=== PATIENT | male | born 1935 | race African-American/Black ===

== ENCOUNTER 2016-09-09 12:31 | Inpatient (IN) | payer MEDICARE, MEDICAID ==
[~2016-09-09] VITALS: Ht 175.3 cm; Wt 74.8 kg
[~2016-09-09 12:31] MED LIST: ASPIRIN; ATENOLOL; INSULIN; LASIX; NEURONTIN; NORVASC; [UNRECOGNIZED DRUG - OTHER]
[2016-09-09 13:21] LABS: HEMATOCRIT. 42.4 % (42.0-52.0); HEMOGLOBIN. 14.3 g/dL (14.0-18.0); MEAN CORPUSCULAR HEMOGLOBIN 30.1 pg (28.0-32.0); MEAN CORPUSCULAR VOLUME 89.2 fL (80.0-94.0); MEAN PLATELET VOLUME 9.4 fl (7.4-10.4); PLATELET 192 x1000/uL (130-400); RED BLOOD CELL COUNT 4.75 mill/uL (4.7-6.1); RED CELL DISTRIBUTION WIDTH 14.6 % (11.6-14.6)
[2016-09-09 13:30] LABS: INR 1.1; PARTIAL THROMBOPLASTIN TIME 25.2 sec (24.0-34.0); PROTHROMBIN TIME 11.1 sec
[2016-09-09 13:39] LABS: CARBON DIOXIDE 23 mEq/L (21-32); CHLORIDE 102 mEq/L (98-107); ETHANOL BLOOD < 10 mg/dL
[2016-09-09 13:48] LABS: CREATINE KINASE 1260 IU/L (39-308)
[2016-09-09 13:52] LABS: PLATELET ESTIMATE NORMAL
[2016-09-09 13:58] LABS: CLARITY URINE CLEAR (CLEAR); COLOR URINE YELLOW (YELLOW); GLUCOSE URINE NEGATIVE (NEGATIVE); KETONES URINE NEGATIVE (NEGATIVE); LEUKOCYTE ESTERASE URINE NEGATIVE (NEGATIVE); NITRITE URINE NEGATIVE (NEGATIVE); OCCULT BLOOD URINE 1+ (NEGATIVE); PH URINE 6.5 (4.5-8.0); PROTEIN URINE 3+ (NEGATIVE); SPECIFIC GRAVITY URINE 1.009 (1.005-1.030); UROBILINOGEN URINE 0.2 E.U./dL (0.2-1.0)
[2016-09-09 14:20] LABS: *AMPHETAMINES SCREEN URINE NEGATIVE (NEGATIVE); *BARBITURATES SCREEN URINE NEGATIVE (NEGATIVE); *BENZODIAZEPINES SCREEN URINE NEGATIVE (NEGATIVE); *COCAINE SCREEN URINE NEGATIVE (NEGATIVE); CANNABINOID URINE SCREEN NEGATIVE (NEGATIVE); METHADONE URINE SCREEN NEGATIVE (NEGATIVE); OPIATES URINE SCREEN PRESUMTIVE POSITIVE (NEGATIVE); PHENCYCLIDINE URINE SCREEN NEGATIVE (NEGATIVE)
[2016-09-09] MEDS ORDERED: SODIUM CHLORIDE 0.9% 1,000 ML IV ONE (14:27)
[2016-09-09] MEDS ORDERED: MAGNESIUM/ALUMINUM HYDROXIDE/SIMETHICONE 30ML UDC PO PRN (21:45)
[2016-09-09] MEDS ORDERED: IPRATROPIUM/ALBUTEROL 0.5-3(2.5)MG/3ML NEB INH PRN (21:45)
[2016-09-09] MEDS ORDERED: ONDANSETRON HCL 4MG/2ML VIAL IV PRN (21:45)
[2016-09-09] MEDS ORDERED: DEXTROSE 50% WATER 50ML SYRINGE IV PRN (21:45)
[2016-09-09] MEDS ORDERED: ACETAMINOPHEN 325MG TABLET PO PRN (21:45)
[2016-09-09] MEDS ORDERED: LORAZEPAM 0.5MG TABLET PO PRN (21:45)
[2016-09-09] MEDS ORDERED: DIPHENHYDRAMINE 50MG/ML VIAL IV PRN (21:45)
[2016-09-09] MEDS ORDERED: ATEN-42 PO (22:23)
[2016-09-09] MEDS ORDERED: GABA100C PO (22:23)
[2016-09-09] MEDS ORDERED: FURO-152 PO (22:23)
[2016-09-09] MEDS ORDERED: AMLO2.5T2 PO (22:23)
[2016-09-09] MEDS ORDERED: ASPI-986 PO (22:23)
[2016-09-09] MEDS ORDERED: ACETAMINOPHEN WITH CODEINE 300/60MG TABLET PO PRN (22:30)
[2016-09-09] MEDS ORDERED: DEXT 5%/0.45% NACL 500 ML IV ONE (22:34)
[2016-09-09] MEDS: LACTULOSE 20G/30ML UDC PO SCH (22:46)
[2016-09-09] MEDS: SODIUM CHLORIDE 0.9% INJ 3ML FLUSH IVF SCH (22:46)
[2016-09-09] MEDS: HYDRALAZINE HCL 100MG TABLET PO SCH (22:47)
[2016-09-09] MEDS: GABAPENTIN 300MG CAPSULE PO SCH (22:47)
[2016-09-09] MEDS: CLONIDINE 0.1MG TABLET PO PRN (22:47)
[2016-09-09 23:05] VITALS: BP 225/106
[2016-09-10] VITALS: BP 144/68
[2016-09-10 00:01] LABS: AMMONIA 30 uMol/L (<32)
[2016-09-10] MEDS: IPRATROPIUM/ALBUTEROL 0.5-3(2.5)MG/3ML NEB HHN SCH ×7 (00:19→23:57)
[2016-09-10 04:00] VITALS: BP 123/57
[2016-09-10] MEDS: SODIUM CHLORIDE 0.9% INJ 3ML FLUSH IVF SCH ×3 (06:08→21:09)
[2016-09-10] MEDS: HYDRALAZINE HCL 100MG TABLET PO SCH ×3 (06:10→21:10)
[2016-09-10] MEDS: GABAPENTIN 300MG CAPSULE PO SCH ×3 (06:10→21:09)
[2016-09-10] MEDS: LACTULOSE 20G/30ML UDC PO SCH (06:10)
[2016-09-10] MEDS: BLOOD SUGAR DIAGNOSTIC STRIP TEST SCH ×4 (06:44→21:09)
[2016-09-10] MEDS: INSULIN LISPRO 100 UNITS/ML SUBCUT SCH ×4 (07:50→22:04)
[2016-09-10 08:00] VITALS: BP 148/73
[2016-09-10] MEDS: NIFEDIPINE XL 60MG TAB PO SCH (10:07)
[2016-09-10] MEDS: ATENOLOL 100 MG TABLET PO SCH (10:07)
[2016-09-10 12:00] VITALS: BP 125/59
[2016-09-10 16:00] VITALS: BP 124/56
[2016-09-10 20:00] VITALS: BP 123/60
[2016-09-10] MEDS ORDERED: ATORVASTATIN CALCIUM 10MG TABLET PO SCH (21:00)
[2016-09-10] MEDS: SODIUM CHLORIDE 0.45% 1,000 ML IV SCH (21:08)
[2016-09-11] VITALS (7 sets, daily range): BP systolic 142–175; BP diastolic 65–94
[2016-09-11] MEDS: IPRATROPIUM/ALBUTEROL 0.5-3(2.5)MG/3ML NEB HHN SCH ×4 (04:12→17:30)
[2016-09-11] MEDS: CLONIDINE 0.1MG TABLET PO PRN ×2 (05:26→16:58)
[2016-09-11] MEDS: SODIUM CHLORIDE 0.9% INJ 3ML FLUSH IVF SCH ×2 (05:32→13:48)
[2016-09-11] MEDS: GABAPENTIN 300MG CAPSULE PO SCH ×2 (05:38→13:46)
[2016-09-11] MEDS: HYDRALAZINE HCL 100MG TABLET PO SCH ×2 (05:39→13:46)
[2016-09-11] MEDS: BLOOD SUGAR DIAGNOSTIC STRIP TEST SCH ×2 (07:21→12:20)
[2016-09-11] MEDS: INSULIN LISPRO 100 UNITS/ML SUBCUT SCH ×2 (07:50→13:47)
[2016-09-11] MEDS: NIFEDIPINE XL 60MG TAB PO SCH (09:16)
[2016-09-11] MEDS: ATENOLOL 100 MG TABLET PO SCH (09:17)
[2016-09-11] MEDS: SODIUM CHLORIDE 0.45% 1,000 ML IV SCH (09:28)
[2016-09-11 10:33] LABS: CREATINE KINASE 1253 IU/L (39-308)
== END 2016-09-11 19:00 | disposition home or self-care (01) | DRG 637 ==
LOC: ER 13:14 → ENRESERV 19:42 → 6WST 22:05
PROVIDERS: ADMIT Internal Medicine; ATTEND Internal Medicine
DX: E11.649 Type 2 diabetes mellitus with hypoglycemia without coma (principal); G93.41 Metabolic encephalopathy; M62.82 Rhabdomyolysis; I50.32 Chronic diastolic (congestive) heart failure; E78.00 Pure hypercholesterolemia, unspecified; I11.0 Hypertensive heart disease with heart failure; J44.9 Chronic obstructive pulmonary disease, unspecified; M47.812 Spondylosis without myelopathy or radiculopathy, cervical region; N40.0 Benign prostatic hyperplasia without lower urinary tract symptoms; Z79.4 Long term (current) use of insulin; Z82.49 Family history of ischemic heart disease and other diseases of the circulatory system; Z87.891 Personal history of nicotine dependence; Z95.0 Presence of cardiac pacemaker
CPT/HCPCS: 36415; 70450; 71010; 80048; 80053; 80305; 81001; 82140; 82550; 82553; 82962; 83036; 83690; 84484; 85025; 85610; 85730; 93005; 94640; 96360; 96361; 99285; G0482; J1815; J7030; J7620

== ENCOUNTER 2017-01-24 15:20 | Inpatient (IN) | payer MEDICARE, MEDICAID ==
[~2017-01-24] VITALS: Ht 182.9 cm; Wt 74.4 kg
[~2017-01-24 15:20] MED LIST changes: +AMLO2.5T2 PO; +ASPI-986 PO; -ASPIRIN; +ATEN-42 PO; -ATENOLOL; +FURO-152 PO; +GABA100C PO; -LASIX; -NEURONTIN; -NORVASC
[2017-01-24] MEDS ORDERED: POTA10CA42 PO (15:27)
[2017-01-24] MEDS ORDERED: IPRATROPIUM/ALBUTEROL 0.5-3(2.5)MG/3ML NEB HHN ONE ×3 (15:45→18:45)
[2017-01-24] MEDS ORDERED: METHYLPREDNISOLONE SOD SUCC 125 MG/2 ML VIAL IV ONE (15:45)
[2017-01-24 16:03] LABS: BG BASE EXCESS -11.5 mmol/L (-2.0-2.0); BG CARBOXYHEMOGLOBIN 0.5 % (0.5-1.5); BG HCO3 ACT 16.4 mmol/L (22.0-26.0); BG METHEMOGLOBIN 0.4 % (0.0-1.5); BG OXYHEMOGLOBIN 98.1 % (94.0-97.0); BG PCO2 44.7 mmHg (35.0-45.0); BG PH 7.183 (7.350-7.450); BG PO2 190.4 mmHg (75.0-100.0); BG SAMPLE SITE RIGHT RADIAL
[2017-01-24 16:10] LABS: INR 1.1; PROTHROMBIN TIME 11.5 sec (9.4-11.6)
[2017-01-24 16:17] LABS: HEMATOCRIT. 39.3 % (42.0-52.0); HEMOGLOBIN. 13.1 g/dL (14.0-18.0); MEAN CORPUSCULAR HEMOGLOBIN 30.4 pg (28.0-32.0); MEAN CORPUSCULAR VOLUME 90.9 fL (80.0-94.0); MEAN PLATELET VOLUME 9.3 fl (7.4-10.4); PLATELET 153 x1000/uL (130-400); RED BLOOD CELL COUNT 4.32 mill/uL (4.7-6.1); RED CELL DISTRIBUTION WIDTH 15.4 % (11.6-14.6)
[2017-01-24 16:23] LABS: CARBON DIOXIDE 18 mEq/L (21-32); CHLORIDE 108 mEq/L (98-107)
[2017-01-24] MEDS ORDERED: ASPIRIN 325MG EC TABLET PO ONE (16:45)
[2017-01-24] MEDS ORDERED: CLOPIDOGREL 75MG TABLET PO ONE (16:45)
[2017-01-24 16:57] LABS: PLATELET ESTIMATE NORMAL
[2017-01-24 17:05] LABS: BG BASE EXCESS -10.6 mmol/L (-2.0-2.0); BG CARBOXYHEMOGLOBIN 0.9 % (0.5-1.5); BG DEOXYHEMOGLOBIN 2.2 % (0.0-5.0); BG HCO3 ACT 15.8 mmol/L (22.0-26.0); BG METHEMOGLOBIN 0.4 % (0.0-1.5); BG OXYGEN SATURATION 97.8 % (92.0-98.5); BG OXYHEMOGLOBIN 96.5 % (94.0-97.0); BG PCO2 36.7 mmHg (35.0-45.0); BG PH 7.251 (7.350-7.450); BG PO2 116.3 mmHg (75.0-100.0); BG SAMPLE SITE RIGHT RADIAL; BG TOTAL HEMOGLOBIN 14.4 g/dL (12.0-18.0); BG VENT MODE NASAL CANNULA
[2017-01-24 22:24] VITALS: BP 182/102
[2017-01-24 22:30] VITALS: BP 182/102
[2017-01-24 23:23] VITALS: BP 205/114
[2017-01-25] VITALS (67 sets, daily range): BP systolic 138–211; BP diastolic 58–145
[2017-01-25] MEDS ORDERED: ONDANSETRON HCL 4MG/2ML VIAL IV PRN
[2017-01-25] MEDS ORDERED: DIPHENHYDRAMINE 50MG/ML VIAL IV PRN
[2017-01-25] MEDS ORDERED: MORPHINE SULFATE 10 MG/ML CPJ IV PRN
[2017-01-25] MEDS ORDERED: IPRATROPIUM/ALBUTEROL 0.5-3(2.5)MG/3ML NEB INH PRN
[2017-01-25] MEDS ORDERED: MAGNESIUM/ALUMINUM HYDROXIDE/SIMETHICONE 30ML UDC PO PRN
[2017-01-25] MEDS ORDERED: TEMAZEPAM 15MG CAPSULE PO SCH
[2017-01-25] MEDS ORDERED: LEVOFLOXACIN 500MG PREMIX 100 ML IV SCH ×2 (00:45→03:00)
[2017-01-25] MEDS ORDERED: METHYLPREDNISOLONE SOD SUCC 40 MG/ML VIAL IV SCH (00:45)
[2017-01-25] MEDS: HYDRALAZINE 20MG/ML VIAL IV PRN ×3 (00:54→21:06)
[2017-01-25] MEDS ORDERED: LORAZEPAM 2MG/ML CPJ IV PRN (01:00)
[2017-01-25] MEDS: IPRATROPIUM/ALBUTEROL 0.5-3(2.5)MG/3ML NEB HHN SCH ×6 (01:27→20:35)
[2017-01-25] MEDS: NITROGLYCERIN OINT 1GM/INCH UDPKT TD SCH ×4 (02:30→22:29)
[2017-01-25] MEDS: INSULIN DETEMIR UD 100 UNITS/ML SYR SUBCUT SCH ×2 (02:32→22:33)
[2017-01-25 02:41] LABS: BG BASE EXCESS -11.1 mmol/L (-2.0-2.0); BG BILEVEL POS AIRWAY PRESSURE 15/5; BG CARBOXYHEMOGLOBIN 0.1 % (0.5-1.5); BG DEOXYHEMOGLOBIN 1.6 % (0.0-5.0); BG FRACTION INSPIRED OXYGEN 30; BG HCO3 ACT 13.3 mmol/L (22.0-26.0); BG METHEMOGLOBIN 0.5 % (0.0-1.5); BG OXYGEN SATURATION 98.4 % (92.0-98.5); BG OXYHEMOGLOBIN 97.8 % (94.0-97.0); BG PCO2 26.5 mmHg (35.0-45.0); BG PH 7.317 (7.350-7.450); BG PO2 135.9 mmHg (75.0-100.0); BG SAMPLE SITE LEFT BRACHIAL; BG TOTAL HEMOGLOBIN 14.5 g/dL (12.0-18.0); BG VENT MODE MASK - BIPAP; BG VENT RATE 18 set
[2017-01-25] MEDS: SODIUM CHLORIDE 0.9% INJ 3ML FLUSH IVF SCH ×3 (05:04→21:06)
[2017-01-25] MEDS: METHYLPREDNISOLONE SOD SUCC 125 MG/2 ML VIAL IV SCH ×3 (05:04→21:05)
[2017-01-25] MEDS: HYDRALAZINE HCL 100MG TABLET PO SCH ×3 (05:04→22:30)
[2017-01-25 06:28] LABS: HEMATOCRIT. 40.9 % (42.0-52.0); HEMOGLOBIN. 13.6 g/dL (14.0-18.0); MEAN PLATELET VOLUME 9.7 fl (7.4-10.4); PLATELET 141 x1000/uL (130-400); RED BLOOD CELL COUNT 4.55 mill/uL (4.7-6.1); RED CELL DISTRIBUTION WIDTH 15.2 % (11.6-14.6)
[2017-01-25] MEDS: BLOOD SUGAR DIAGNOSTIC STRIP TEST SCH ×4 (07:50→20:48)
[2017-01-25] MEDS: INSULIN LISPRO 100 UNITS/ML SUBCUT SCH ×4 (08:20→20:49)
[2017-01-25] MEDS: FUROSEMIDE 40MG/4ML VIAL IVP SCH (08:34)
[2017-01-25 08:35] LABS: TROPONIN I 2.9 ng/mL (0.00-0.04)
[2017-01-25] MEDS: PANTOPRAZOLE SODIUM 40 MG/VIAL IV SCH (08:35)
[2017-01-25] MEDS: DOCUSATE SODIUM 100MG CAPSULE PO SCH (08:35)
[2017-01-25] MEDS: ENOXAPARIN 40MG/0.4ML SYR SUBCUT SCH (08:35)
[2017-01-25] MEDS: ASPIRIN 81MG EC TABLET PO SCH (08:35)
[2017-01-25] MEDS: SPIRONOLACTONE 25MG TABLET PO SCH (08:36)
[2017-01-25] MEDS: CARVEDILOL 6.25 MG TABLET PO SCH ×2 (08:36→19:25)
[2017-01-25] MEDS: CLOPIDOGREL 75MG TABLET PO SCH (08:36)
[2017-01-25 08:41] LABS: BG BASE EXCESS -7.3 mmol/L (-2.0-2.0); BG BILEVEL POS AIRWAY PRESSURE 15/5; BG CARBOXYHEMOGLOBIN 0.6 % (0.5-1.5); BG DEOXYHEMOGLOBIN 1.2 % (0.0-5.0); BG FRACTION INSPIRED OXYGEN 30; BG HCO3 ACT 16.7 mmol/L (22.0-26.0); BG METHEMOGLOBIN 0.6 % (0.0-1.5); BG OXYGEN SATURATION 98.8 % (92.0-98.5); BG OXYHEMOGLOBIN 97.6 % (94.0-97.0); BG PCO2 30.1 mmHg (35.0-45.0); BG PH 7.361 (7.350-7.450); BG PO2 136.3 mmHg (75.0-100.0); BG SAMPLE SITE RIGHT RADIAL; BG TOTAL HEMOGLOBIN 14.8 g/dL (12.0-18.0); BG VENT MODE MASK - BIPAP; BG VENT RATE 18 set
[2017-01-25] MEDS ORDERED: POTASSIUM CHLORIDE 20MEQ TABLET SR PO SCH (09:00)
[2017-01-25] MEDS ORDERED: IPRATROPIUM/ALBUTEROL 0.5-3(2.5)MG/3ML NEB HHN PRN (10:15)
[2017-01-25] MEDS ORDERED: INFLUENZA VIRUS VACCINE 0.5ML SYR IM ONE (12:00)
[2017-01-25] MEDS: BUDESONIDE 0.5MG/2ML NEB HHN SCH (12:14)
[2017-01-25 17:24] LABS: CLARITY URINE CLEAR (CLEAR); COLOR URINE YELLOW (YELLOW); GLUCOSE URINE NEGATIVE (NEGATIVE); KETONES URINE NEGATIVE (NEGATIVE); LEUKOCYTE ESTERASE URINE NEGATIVE (NEGATIVE); NITRITE URINE NEGATIVE (NEGATIVE); OCCULT BLOOD URINE NEGATIVE (NEGATIVE); PROTEIN URINE 2+ (NEGATIVE); SPECIFIC GRAVITY URINE 1.012 (1.005-1.030); UROBILINOGEN URINE 0.2 E.U./dL (0.2-1.0)
[2017-01-25 17:56] LABS: *AMPHETAMINES SCREEN URINE NEGATIVE (NEGATIVE); *BARBITURATES SCREEN URINE NEGATIVE (NEGATIVE); *BENZODIAZEPINES SCREEN URINE NEGATIVE (NEGATIVE); *COCAINE SCREEN URINE NEGATIVE (NEGATIVE); CANNABINOID URINE SCREEN NEGATIVE (NEGATIVE); METHADONE URINE SCREEN NEGATIVE (NEGATIVE); OPIATES URINE SCREEN PRESUMTIVE POSITIVE (NEGATIVE); PHENCYCLIDINE URINE SCREEN NEGATIVE (NEGATIVE)
[2017-01-25] MEDS ORDERED: PNEUMOCOCCAL 23-VAL P-SAC VAC 0.5 ML IM ONE (18:30)
[2017-01-25] MEDS: ATORVASTATIN CALCIUM 10MG TABLET PO SCH (19:25)
[2017-01-25] MEDS: LORAZEPAM 1MG TABLET PO PRN (22:29)
[2017-01-25 22:41] LABS: PLATELET ESTIMATE NORMAL
[2017-01-26] VITALS (52 sets, daily range): BP systolic 120–205; BP diastolic 57–109
[2017-01-26] MEDS: IPRATROPIUM/ALBUTEROL 0.5-3(2.5)MG/3ML NEB HHN SCH ×6 (00:27→20:07)
[2017-01-26] MEDS: BUDESONIDE 0.5MG/2ML NEB HHN SCH ×3 (00:28→20:07)
[2017-01-26] MEDS: HYDRALAZINE 20MG/ML VIAL IV PRN ×3 (03:41→16:46)
[2017-01-26] MEDS: LEVOFLOXACIN 250MG PREMIX 50 ML IV SCH (03:42)
[2017-01-26] MEDS: SODIUM CHLORIDE 0.9% INJ 3ML FLUSH IVF SCH ×3 (05:35→21:27)
[2017-01-26] MEDS: LORAZEPAM 1MG TABLET PO PRN (05:40)
[2017-01-26] MEDS: NITROGLYCERIN OINT 1GM/INCH UDPKT TD SCH ×3 (05:40→21:28)
[2017-01-26] MEDS: HYDRALAZINE HCL 100MG TABLET PO SCH ×3 (05:40→22:59)
[2017-01-26] MEDS: METHYLPREDNISOLONE SOD SUCC 125 MG/2 ML VIAL IV SCH (05:40)
[2017-01-26] MEDS: INSULIN LISPRO 100 UNITS/ML SUBCUT SCH ×4 (08:20→21:24)
[2017-01-26] MEDS: BLOOD SUGAR DIAGNOSTIC STRIP TEST SCH ×4 (08:21→21:12)
[2017-01-26] MEDS: PANTOPRAZOLE SODIUM 40 MG/VIAL IV SCH (08:21)
[2017-01-26] MEDS: ASPIRIN 81MG EC TABLET PO SCH (08:22)
[2017-01-26] MEDS: CLOPIDOGREL 75MG TABLET PO SCH (08:22)
[2017-01-26] MEDS: SPIRONOLACTONE 25MG TABLET PO SCH (08:22)
[2017-01-26] MEDS: DOCUSATE SODIUM 100MG CAPSULE PO SCH (08:22)
[2017-01-26] MEDS: FUROSEMIDE 40MG/4ML VIAL IVP SCH (08:22)
[2017-01-26] MEDS: CARVEDILOL 6.25 MG TABLET PO SCH (08:23)
[2017-01-26] MEDS: ENOXAPARIN 40MG/0.4ML SYR SUBCUT SCH (08:24)
[2017-01-26] MEDS ORDERED: CLONIDINE 0.2MG TABLET PO PRN (13:15)
[2017-01-26] MEDS ORDERED: METHYLPREDNISOLONE SOD SUCC 40 MG/ML VIAL IV SCH (17:00)
[2017-01-26] MEDS ORDERED: ACETAMINOPHEN WITH CODEINE 300/60MG TABLET PO PRN (17:15)
[2017-01-26] MEDS ORDERED: CHLORDIAZEPOXIDE 25MG CAPSULE PO NR (17:15)
[2017-01-26] MEDS: BENAZEPRIL 20MG TABLET PO SCH (17:35)
[2017-01-26] MEDS ORDERED: CARVEDILOL 12.5MG TABLET PO SCH (21:00)
[2017-01-26] MEDS: INSULIN DETEMIR UD 100 UNITS/ML SYR SUBCUT SCH (21:25)
[2017-01-26] MEDS: ATORVASTATIN CALCIUM 10MG TABLET PO SCH (21:26)
[2017-01-26] MEDS: CARVEDILOL 12.5MG TABLET PO SCH (21:26)
[2017-01-26] MEDS: OMEPRAZOLE 20MG CAPSULE EXTENDED RELEASE PO SCH (21:27)
[2017-01-26] MEDS: CLONIDINE 0.2MG TABLET PO SCH (22:58)
[2017-01-26] MEDS: CHLORDIAZEPOXIDE 25MG CAPSULE PO SCH (22:59)
[2017-01-27] VITALS (40 sets, daily range): BP systolic 76–174; BP diastolic 44–118
[2017-01-27] MEDS: IPRATROPIUM/ALBUTEROL 0.5-3(2.5)MG/3ML NEB HHN SCH ×5 (00:13→20:06)
[2017-01-27] MEDS: LEVOFLOXACIN 250MG PREMIX 50 ML IV SCH (02:12)
[2017-01-27] MEDS: BENAZEPRIL 20MG TABLET PO SCH ×2 (04:25→18:06)
[2017-01-27] MEDS: SODIUM CHLORIDE 0.9% INJ 3ML FLUSH IVF SCH ×3 (05:03→21:29)
[2017-01-27] MEDS: HYDRALAZINE HCL 100MG TABLET PO SCH ×3 (05:06→22:00)
[2017-01-27] MEDS: CHLORDIAZEPOXIDE 25MG CAPSULE PO SCH ×3 (05:06→22:23)
[2017-01-27] MEDS: CLONIDINE 0.2MG TABLET PO SCH ×3 (05:06→22:00)
[2017-01-27] MEDS: NITROGLYCERIN OINT 1GM/INCH UDPKT TD SCH ×3 (05:06→22:23)
[2017-01-27 05:34] LABS: HEMATOCRIT. 35.2 % (42.0-52.0); HEMOGLOBIN. 11.9 g/dL (14.0-18.0); MEAN CORPUSCULAR HEMOGLOBIN 29.9 pg (28.0-32.0); MEAN CORPUSCULAR VOLUME 88.7 fL (80.0-94.0); MEAN PLATELET VOLUME 9.3 fl (7.4-10.4); PLATELET 142 x1000/uL (130-400); RED BLOOD CELL COUNT 3.97 mill/uL (4.7-6.1)
[2017-01-27 06:13] LABS: CARBON DIOXIDE 24 mEq/L (21-32); CHLORIDE 105 mEq/L (98-107)
[2017-01-27] MEDS: BUDESONIDE 0.5MG/2ML NEB HHN SCH ×2 (07:46→20:05)
[2017-01-27] MEDS: BLOOD SUGAR DIAGNOSTIC STRIP TEST SCH ×4 (07:50→21:10)
[2017-01-27 08:01] LABS: PLATELET ESTIMATE NORMAL
[2017-01-27] MEDS: OMEPRAZOLE 20MG CAPSULE EXTENDED RELEASE PO SCH ×2 (08:14→21:26)
[2017-01-27] MEDS: DEXTROSE 50% WATER 50ML SYRINGE IV PRN (08:14)
[2017-01-27] MEDS: INSULIN LISPRO 100 UNITS/ML SUBCUT SCH ×4 (08:20→21:10)
[2017-01-27] MEDS ORDERED: ENOXAPARIN 60MG/0.6ML SYR SUBCUT SCH (09:00)
[2017-01-27] MEDS ORDERED: NITROGLYCERIN 50MCG/ML 10ML VIAL (CATH LAB) IV ONE (10:13)
[2017-01-27] MEDS ORDERED: NICARDIPINE 100MCG/ML 10ML VIAL (CATH LAB) IV ONE (10:13)
[2017-01-27] MEDS ORDERED: HEPARIN SODIUM 1,000 UNIT/1ML VIAL IV ONE (10:13)
[2017-01-27] MEDS: FUROSEMIDE 40MG/4ML VIAL IVP SCH (10:32)
[2017-01-27] MEDS: METHYLPREDNISOLONE SOD SUCC 40 MG/ML VIAL IV SCH (10:33)
[2017-01-27] MEDS: CLOPIDOGREL 75MG TABLET PO SCH (10:34)
[2017-01-27] MEDS: SPIRONOLACTONE 25MG TABLET PO SCH (10:34)
[2017-01-27] MEDS: DOCUSATE SODIUM 100MG CAPSULE PO SCH (10:34)
[2017-01-27] MEDS: CARVEDILOL 12.5MG TABLET PO SCH ×2 (10:34→21:29)
[2017-01-27] MEDS: ASPIRIN 81MG EC TABLET PO SCH (10:34)
[2017-01-27] MEDS: SODIUM CHLORIDE 0.45% 1,000 ML IV SCH (10:43)
[2017-01-27] MEDS ORDERED: LIDOCAINE HCL 1% 20ML VIAL (Pyxis) INJ ONE (12:01)
[2017-01-27] MEDS ORDERED: IODIXANOL 320MG/ML 100 ML BOTTLE IV ONE (12:02)
[2017-01-27] MEDS ORDERED: MIDAZOLAM HCL 2 MG/2 ML VIAL ONE (12:59)
[2017-01-27] MEDS ORDERED: FENTANYL CITRATE/PF 50MCG/ML 2ML VIAL ONE (12:59)
[2017-01-27] MEDS ORDERED: ATROPINE SULFATE 1MG/10ML SYR IV PRN (14:00)
[2017-01-27] MEDS ORDERED: ACETAMINOPHEN 325MG TABLET PO PRN (14:00)
[2017-01-27] MEDS: ATORVASTATIN CALCIUM 10MG TABLET PO SCH (21:26)
[2017-01-27] MEDS: INSULIN DETEMIR UD 100 UNITS/ML SYR SUBCUT SCH (21:50)
[2017-01-28] VITALS (24 sets, daily range): BP systolic 87–157; BP diastolic 49–102
[2017-01-28] MEDS: IPRATROPIUM/ALBUTEROL 0.5-3(2.5)MG/3ML NEB HHN SCH ×6 (00:23→21:53)
[2017-01-28] MEDS: SODIUM CHLORIDE 0.45% 1,000 ML IV SCH ×2 (01:43→21:27)
[2017-01-28] MEDS: LEVOFLOXACIN 250MG PREMIX 50 ML IV SCH (03:51)
[2017-01-28] MEDS: BENAZEPRIL 20MG TABLET PO SCH ×2 (05:36→17:39)
[2017-01-28] MEDS: CHLORDIAZEPOXIDE 25MG CAPSULE PO SCH (06:08)
[2017-01-28] MEDS: OMEPRAZOLE 20MG CAPSULE EXTENDED RELEASE PO SCH ×2 (06:08→21:50)
[2017-01-28] MEDS: CLONIDINE 0.2MG TABLET PO SCH ×3 (06:08→21:51)
[2017-01-28] MEDS: HYDRALAZINE HCL 100MG TABLET PO SCH ×3 (06:09→21:51)
[2017-01-28] MEDS: SODIUM CHLORIDE 0.9% INJ 3ML FLUSH IVF SCH ×2 (06:09→21:56)
[2017-01-28] MEDS: NITROGLYCERIN OINT 1GM/INCH UDPKT TD SCH ×3 (06:09→21:52)
[2017-01-28] MEDS: DEXTROSE 50% WATER 50ML SYRINGE IV PRN (06:42)
[2017-01-28] MEDS: BLOOD SUGAR DIAGNOSTIC STRIP TEST SCH ×4 (06:51→21:53)
[2017-01-28 06:54] LABS: HEMATOCRIT. 40.4 % (42.0-52.0); HEMOGLOBIN. 13.3 g/dL (14.0-18.0); MEAN CORPUSCULAR HEMOGLOBIN 29.5 pg (28.0-32.0); MEAN CORPUSCULAR VOLUME 89.6 fL (80.0-94.0); MEAN PLATELET VOLUME 9.4 fl (7.4-10.4); PLATELET 153 x1000/uL (130-400); RED BLOOD CELL COUNT 4.51 mill/uL (4.7-6.1)
[2017-01-28] MEDS: INSULIN LISPRO 100 UNITS/ML SUBCUT SCH ×5 (07:20→22:22)
[2017-01-28] MEDS: METHYLPREDNISOLONE SOD SUCC 40 MG/ML VIAL IV SCH (08:35)
[2017-01-28] MEDS: CLOPIDOGREL 75MG TABLET PO SCH (08:35)
[2017-01-28] MEDS: DOCUSATE SODIUM 100MG CAPSULE PO SCH (08:35)
[2017-01-28] MEDS: FUROSEMIDE 40MG/4ML VIAL IVP SCH (08:35)
[2017-01-28] MEDS: SPIRONOLACTONE 25MG TABLET PO SCH (08:35)
[2017-01-28] MEDS: CARVEDILOL 12.5MG TABLET PO SCH ×2 (08:36→21:52)
[2017-01-28] MEDS: ASPIRIN 81MG EC TABLET PO SCH (08:36)
[2017-01-28] MEDS: BUDESONIDE 0.5MG/2ML NEB HHN SCH (09:50)
[2017-01-28] MEDS: METHYLPREDNISOLONE SOD SUCC 125 MG/2 ML VIAL IV SCH (21:50)
[2017-01-28] MEDS: ATORVASTATIN CALCIUM 10MG TABLET PO SCH (21:50)
[2017-01-28] MEDS: INSULIN DETEMIR UD 100 UNITS/ML SYR SUBCUT SCH (22:23)
[2017-01-29] VITALS (19 sets, daily range): BP systolic 100–152; BP diastolic 51–104
[2017-01-29] MEDS: IPRATROPIUM/ALBUTEROL 0.5-3(2.5)MG/3ML NEB HHN SCH ×6 (02:25→20:49)
[2017-01-29] MEDS: NITROGLYCERIN OINT 1GM/INCH UDPKT TD SCH ×3 (06:11→22:40)
[2017-01-29] MEDS: METHYLPREDNISOLONE SOD SUCC 125 MG/2 ML VIAL IV SCH ×3 (06:11→22:40)
[2017-01-29] MEDS: OMEPRAZOLE 20MG CAPSULE EXTENDED RELEASE PO SCH ×2 (06:12→21:09)
[2017-01-29] MEDS: BENAZEPRIL 20MG TABLET PO SCH ×2 (06:12→17:47)
[2017-01-29] MEDS: HYDRALAZINE HCL 100MG TABLET PO SCH ×3 (06:12→22:40)
[2017-01-29] MEDS: INSULIN LISPRO 100 UNITS/ML SUBCUT SCH ×4 (06:13→21:13)
[2017-01-29] MEDS: CLONIDINE 0.2MG TABLET PO SCH ×3 (06:13→22:00)
[2017-01-29 06:44] LABS: BASOPHILS % 0.1 % (0.0-2.0); EOSINOPHILS % 0.1 % (0.0-5.0); HEMATOCRIT. 39.5 % (42.0-52.0); HEMOGLOBIN. 13.4 g/dL (14.0-18.0); MEAN CORPUSCULAR HEMOGLOBIN 30.4 pg (28.0-32.0); MEAN CORPUSCULAR VOLUME 89.7 fL (80.0-94.0); MEAN PLATELET VOLUME 9.4 fl (7.4-10.4); MONOCYTES % 7.6 % (2.0-8.0); NEUTROPHILS % 79.2 % (40.0-76.0); PLATELET 149 x1000/uL (130-400); RED BLOOD CELL COUNT 4.41 mill/uL (4.7-6.1); RED CELL DISTRIBUTION WIDTH 15.2 % (11.6-14.6)
[2017-01-29 08:42] LABS: PLATELET ESTIMATE NORMAL
[2017-01-29] MEDS: ASPIRIN 81MG EC TABLET PO SCH (08:54)
[2017-01-29] MEDS: FUROSEMIDE 40MG/4ML VIAL IVP SCH (08:54)
[2017-01-29] MEDS: DOCUSATE SODIUM 100MG CAPSULE PO SCH (08:54)
[2017-01-29] MEDS: CARVEDILOL 12.5MG TABLET PO SCH ×2 (08:56→21:10)
[2017-01-29] MEDS: SPIRONOLACTONE 25MG TABLET PO SCH (08:56)
[2017-01-29] MEDS: CLOPIDOGREL 75MG TABLET PO SCH (08:56)
[2017-01-29] MEDS ORDERED: PREDNISONE 20MG TABLET PO SCH (09:00)
[2017-01-29] MEDS: LEVOFLOXACIN 250MG TABLET PO SCH (09:14)
[2017-01-29] MEDS: SODIUM CHLORIDE 0.45% 1,000 ML IV SCH ×2 (09:37→19:42)
[2017-01-29 11:42] LABS: BG BASE EXCESS -2.6 mmol/L (-2.0-2.0); BG CARBOXYHEMOGLOBIN 0.3 % (0.5-1.5); BG DEOXYHEMOGLOBIN 2.9 % (0.0-5.0); BG FRACTION INSPIRED OXYGEN 28; BG HCO3 ACT 22.2 mmol/L (22.0-26.0); BG METHEMOGLOBIN 0.4 % (0.0-1.5); BG OXYGEN SATURATION 97.1 % (92.0-98.5); BG OXYHEMOGLOBIN 96.4 % (94.0-97.0); BG PH 7.374 (7.350-7.450); BG PO2 97.5 mmHg (75.0-100.0); BG SAMPLE SITE LEFT RADIAL; BG TOTAL HEMOGLOBIN 14.6 g/dL (12.0-18.0); BG VENT MODE NASAL CANNULA
[2017-01-29] MEDS: BLOOD SUGAR DIAGNOSTIC STRIP TEST SCH ×3 (11:50→21:11)
[2017-01-29 13:23] LABS: AMMONIA < 25 uMol/L (<32)
[2017-01-29] MEDS: BUDESONIDE 0.5MG/2ML NEB HHN SCH (20:49)
[2017-01-29] MEDS: ATORVASTATIN CALCIUM 10MG TABLET PO SCH (21:09)
[2017-01-29] MEDS: SODIUM CHLORIDE 0.9% INJ 3ML FLUSH IVF SCH (21:11)
[2017-01-29] MEDS: GUAIFENESIN 200MG/10ML SUGAR FREE UDC PO PRN (22:42)
[2017-01-29] MEDS: INSULIN DETEMIR UD 100 UNITS/ML SYR SUBCUT SCH (22:43)
[2017-01-30] VITALS (16 sets, daily range): BP systolic 117–178; BP diastolic 58–84
[2017-01-30] MEDS: IPRATROPIUM/ALBUTEROL 0.5-3(2.5)MG/3ML NEB HHN SCH ×6 (00:59→20:55)
[2017-01-30] MEDS: BENAZEPRIL 20MG TABLET PO SCH ×2 (04:34→17:47)
[2017-01-30] MEDS: METHYLPREDNISOLONE SOD SUCC 125 MG/2 ML VIAL IV SCH (05:54)
[2017-01-30] MEDS: OMEPRAZOLE 20MG CAPSULE EXTENDED RELEASE PO SCH ×2 (05:54→22:01)
[2017-01-30] MEDS: CLONIDINE 0.2MG TABLET PO SCH ×3 (05:55→21:55)
[2017-01-30] MEDS: HYDRALAZINE HCL 100MG TABLET PO SCH ×3 (05:55→21:55)
[2017-01-30] MEDS: SODIUM CHLORIDE 0.45% 1,000 ML IV SCH (05:56)
[2017-01-30] MEDS: NITROGLYCERIN OINT 1GM/INCH UDPKT TD SCH ×3 (05:56→21:57)
[2017-01-30] MEDS: SPIRONOLACTONE 25MG TABLET PO SCH (07:48)
[2017-01-30] MEDS: INSULIN LISPRO 100 UNITS/ML SUBCUT SCH ×4 (07:48→21:58)
[2017-01-30] MEDS: CLOPIDOGREL 75MG TABLET PO SCH (07:48)
[2017-01-30] MEDS: FUROSEMIDE 40MG/4ML VIAL IVP SCH (07:48)
[2017-01-30] MEDS: ASPIRIN 81MG EC TABLET PO SCH (07:48)
[2017-01-30] MEDS: CARVEDILOL 12.5MG TABLET PO SCH ×2 (07:49→21:56)
[2017-01-30] MEDS: GUAIFENESIN 200MG/10ML SUGAR FREE UDC PO PRN ×2 (07:52→17:47)
[2017-01-30] MEDS: DOCUSATE SODIUM 100MG CAPSULE PO SCH (07:52)
[2017-01-30] MEDS: BUDESONIDE 0.5MG/2ML NEB HHN SCH ×2 (07:56→20:55)
[2017-01-30] MEDS: BLOOD SUGAR DIAGNOSTIC STRIP TEST SCH ×3 (11:50→21:59)
[2017-01-30] MEDS: LEVOFLOXACIN 250MG TABLET PO SCH (12:45)
[2017-01-30] MEDS: METHYLPREDNISOLONE SOD SUCC 40 MG/ML VIAL IV SCH ×2 (13:23→21:56)
[2017-01-30 20:40] LABS: T4 FREE 0.86 ng/dL (0.76-1.46)
[2017-01-30 20:54] LABS: FOLIC ACID (FOLATE) SERUM 11.9 ng/mL (>5.38)
[2017-01-30] MEDS: ATORVASTATIN CALCIUM 10MG TABLET PO SCH (21:55)
[2017-01-30] MEDS: INSULIN DETEMIR UD 100 UNITS/ML SYR SUBCUT SCH (21:58)
[2017-01-30] MEDS: SODIUM CHLORIDE 0.9% INJ 3ML FLUSH IVF SCH (22:01)
== END 2017-01-30 22:55 | DRG 280 ==
LOC: ER 15:27 → 5EST 17:03 → ENRESERV 19:19 → CVICU 01-25 01:50 → 3WST 01-27 14:26
PROVIDERS: ADMIT Internal Medicine; ATTEND Internal Medicine
PROC: 5A09457 Assistance with Respiratory Ventilation, 24-96 Consecutive Hours, Continuous Positive Airway Pressure (ICD-10-PCS; principal; 2017-01-24)
PROC: 5A09357 Assistance with Respiratory Ventilation, Less than 24 Consecutive Hours, Continuous Positive Airway Pressure (ICD-10-PCS; 2017-01-26)
PROC: 4A023N7 Measurement of Cardiac Sampling and Pressure, Left Heart, Percutaneous Approach (ICD-10-PCS; 2017-01-27)
PROC: B2111ZZ Fluoroscopy of Multiple Coronary Arteries using Low Osmolar Contrast (ICD-10-PCS; 2017-01-27)
PROC: 5A09357 Assistance with Respiratory Ventilation, Less than 24 Consecutive Hours, Continuous Positive Airway Pressure (ICD-10-PCS; 2017-01-29)
PROC: 5A09357 Assistance with Respiratory Ventilation, Less than 24 Consecutive Hours, Continuous Positive Airway Pressure (ICD-10-PCS; 2017-01-30)
DX: I21.4 Non-ST elevation (NSTEMI) myocardial infarction (principal); J96.00 Acute respiratory failure, unspecified whether with hypoxia or hypercapnia; G92 Toxic encephalopathy; I50.33 Acute on chronic diastolic (congestive) heart failure; N17.9 Acute kidney failure, unspecified; R13.10 Dysphagia, unspecified; E87.2 Acidosis; J44.1 Chronic obstructive pulmonary disease with (acute) exacerbation; I13.0 Hypertensive heart and chronic kidney disease with heart failure and stage 1 through stage 4 chronic kidney disease, or unspecified chronic kidney disease; J45.901 Unspecified asthma with (acute) exacerbation; D64.9 Anemia, unspecified; E11.22 Type 2 diabetes mellitus with diabetic chronic kidney disease; E11.649 Type 2 diabetes mellitus with hypoglycemia without coma; E78.00 Pure hypercholesterolemia, unspecified; F28 Other psychotic disorder not due to a substance or known physiological condition; F41.1 Generalized anxiety disorder; I25.10 Atherosclerotic heart disease of native coronary artery without angina pectoris; K70.30 Alcoholic cirrhosis of liver without ascites; R26.9 Unspecified abnormalities of gait and mobility; M47.812 Spondylosis without myelopathy or radiculopathy, cervical region; N18.9 Chronic kidney disease, unspecified; N40.0 Benign prostatic hyperplasia without lower urinary tract symptoms; Z82.49 Family history of ischemic heart disease and other diseases of the circulatory system; Z83.3 Family history of diabetes mellitus; Z86.73 Personal history of transient ischemic attack (TIA), and cerebral infarction without residual deficits; Z87.891 Personal history of nicotine dependence; Z95.0 Presence of cardiac pacemaker; Z79.82 Long term (current) use of aspirin; Z79.4 Long term (current) use of insulin; Z79.899 Other long term (current) drug therapy
CPT/HCPCS: 36415; 36600; 70450; 71010; 80048; 80053; 80305; 81001; 82140; 82375; 82607; 82746; 82805; 82962; 83036; 83880; 84439; 84443; 84481; 84484; 85025; 85610; 90686; 90732; 92610; 93005; 93306; 93458; 93970; 94640; 94660; 94664; 96374; 97116; 97163; 99291; C1760; C1769; C1887; C1893; C9113; J0360; J1200; J1644; J1650; J1815; J1940; J1956; J2250; J2270; J2920; J2930; J3010; J3490; J7030; J7040; J7620; J7626; Q9967; A4315

== ENCOUNTER 2017-01-30 22:55 | Inpatient (IN) | payer MEDICARE, MEDICAID ==
[~2017-01-30] VITALS: Ht 365.8 cm; Wt 73.9 kg
[2017-01-30 22:55] VITALS: BP 130/69
[~2017-01-30 22:55] MED LIST changes: +POTA10CA42 PO
[2017-01-31] MEDS ORDERED: ACETAMINOPHEN WITH CODEINE 300/60MG TABLET PO PRN (02:15)
[2017-01-31] MEDS ORDERED: ONDANSETRON HCL 4MG/2ML VIAL IV PRN (02:15)
[2017-01-31] MEDS ORDERED: GUAIFENESIN 200MG/10ML SUGAR FREE UDC PO PRN (02:15)
[2017-01-31] MEDS ORDERED: ACETAMINOPHEN 650MG/20.3ML UDC PO PRN (02:15)
[2017-01-31] MEDS ORDERED: CLONIDINE 0.2MG TABLET PO PRN (02:15)
[2017-01-31] MEDS ORDERED: MAGNESIUM/ALUMINUM HYDROXIDE/SIMETHICONE 30ML UDC PO PRN (02:15)
[2017-01-31] MEDS ORDERED: DEXTROSE 50% WATER 50ML SYRINGE IV PRN (02:15)
[2017-01-31] MEDS: SODIUM CHLORIDE 0.45% 1,000 ML IV SCH ×2 (03:00→17:40)
[2017-01-31] MEDS: IPRATROPIUM/ALBUTEROL 0.5-3(2.5)MG/3ML NEB HHN SCH ×4 (04:13→21:56)
[2017-01-31] MEDS ORDERED: METHYLPREDNISOLONE SOD SUCC 40 MG/ML VIAL IV SCH (06:00)
[2017-01-31] MEDS: CLONIDINE 0.2MG TABLET PO SCH ×3 (06:00→23:15)
[2017-01-31] MEDS: BENAZEPRIL 20MG TABLET PO SCH ×2 (06:00→17:40)
[2017-01-31 06:03] LABS: BASOPHILS % 0.2 % (0.0-2.0); EOSINOPHILS % 0.1 % (0.0-5.0); HEMATOCRIT. 38.6 % (42.0-52.0); HEMOGLOBIN. 13.1 g/dL (14.0-18.0); LYMPHOCYTES % 13.3 % (20.0-50.0); MEAN CORPUSCULAR HEMOGLOBIN 30.3 pg (28.0-32.0); MEAN PLATELET VOLUME 9.3 fl (7.4-10.4); MONOCYTES % 14.7 % (2.0-8.0); NEUTROPHILS % 71.7 % (40.0-76.0); PLATELET 155 x1000/uL (130-400); RED BLOOD CELL COUNT 4.34 mill/uL (4.7-6.1); RED CELL DISTRIBUTION WIDTH 15.1 % (11.6-14.6)
[2017-01-31 06:44] LABS: CARBON DIOXIDE 25 mEq/L (21-32); CHLORIDE 103 mEq/L (98-107)
[2017-01-31 06:45] LABS: PREALBUMIN 22.5 mg/dL (20.0-40.0)
[2017-01-31] MEDS: HYDRALAZINE HCL 100MG TABLET PO SCH ×3 (06:49→23:14)
[2017-01-31] MEDS: BLOOD SUGAR DIAGNOSTIC STRIP TEST SCH ×4 (06:50→22:36)
[2017-01-31] MEDS: NITROGLYCERIN OINT 1GM/INCH UDPKT TD SCH ×3 (07:02→23:16)
[2017-01-31] MEDS: INSULIN LISPRO 100 UNITS/ML SUBCUT SCH ×4 (07:35→22:36)
[2017-01-31 08:00] VITALS: BP 176/88
[2017-01-31] MEDS ORDERED: BUDESONIDE 0.5MG/2ML NEB HHN SCH (09:00)
[2017-01-31] MEDS: ASPIRIN 81MG EC TABLET PO SCH (09:21)
[2017-01-31] MEDS: FUROSEMIDE 40MG/4ML VIAL IVP SCH (09:21)
[2017-01-31] MEDS: CLOPIDOGREL 75MG TABLET PO SCH (09:21)
[2017-01-31] MEDS: OMEPRAZOLE 20MG CAPSULE EXTENDED RELEASE PO SCH ×2 (09:21→23:15)
[2017-01-31] MEDS: CARVEDILOL 25MG TABLET PO SCH ×2 (09:22→23:15)
[2017-01-31] MEDS: SPIRONOLACTONE 25MG TABLET PO SCH (09:22)
[2017-01-31] MEDS: DOCUSATE SODIUM 100MG CAPSULE PO SCH (09:22)
[2017-01-31] MEDS ORDERED: LEVOFLOXACIN 250MG TABLET PO SCH (11:00)
[2017-01-31 20:00] VITALS: BP 155/80
[2017-01-31 20:15] VITALS: BP 132/78
[2017-01-31] MEDS: BUDESONIDE 0.5MG/2ML NEB HHN SCH (21:57)
[2017-01-31] MEDS: ATORVASTATIN CALCIUM 10MG TABLET PO SCH (23:14)
[2017-01-31] MEDS: INSULIN DETEMIR UD 100 UNITS/ML SYR SUBCUT SCH (23:26)
[2017-02-01] MEDS: IPRATROPIUM/ALBUTEROL 0.5-3(2.5)MG/3ML NEB HHN SCH ×3 (02:56→20:55)
[2017-02-01 06:39] VITALS: BP 137/65
[2017-02-01] MEDS: HYDRALAZINE HCL 100MG TABLET PO SCH ×2 (06:46→14:00)
[2017-02-01] MEDS: CLONIDINE 0.2MG TABLET PO SCH ×2 (06:46→14:00)
[2017-02-01] MEDS: NITROGLYCERIN OINT 1GM/INCH UDPKT TD SCH ×3 (06:47→22:32)
[2017-02-01] MEDS: BENAZEPRIL 20MG TABLET PO SCH ×2 (06:52→18:01)
[2017-02-01] MEDS: BLOOD SUGAR DIAGNOSTIC STRIP TEST SCH ×4 (07:15→21:59)
[2017-02-01] MEDS: INSULIN LISPRO 100 UNITS/ML SUBCUT SCH ×4 (07:16→22:13)
[2017-02-01] MEDS: BUDESONIDE 0.5MG/2ML NEB HHN SCH ×2 (07:25→20:56)
[2017-02-01] MEDS: IPRATROPIUM/ALBUTEROL 0.5-3(2.5)MG/3ML NEB HHN PRN ×3 (07:25→16:47)
[2017-02-01 08:00] VITALS: BP 115/51
[2017-02-01] MEDS: SPIRONOLACTONE 25MG TABLET PO SCH (09:00)
[2017-02-01] MEDS: SODIUM CHLORIDE 0.45% 1,000 ML IV SCH ×2 (09:13→21:54)
[2017-02-01] MEDS: CLOPIDOGREL 75MG TABLET PO SCH (09:16)
[2017-02-01] MEDS: DOCUSATE SODIUM 100MG CAPSULE PO SCH (09:16)
[2017-02-01] MEDS: PREDNISONE 20MG TABLET PO SCH (09:16)
[2017-02-01] MEDS: ASPIRIN 81MG EC TABLET PO SCH (09:16)
[2017-02-01] MEDS: FUROSEMIDE 40MG/4ML VIAL IVP SCH (09:16)
[2017-02-01] MEDS: OMEPRAZOLE 20MG CAPSULE EXTENDED RELEASE PO SCH ×2 (09:17→21:59)
[2017-02-01] MEDS: CARVEDILOL 25MG TABLET PO SCH ×2 (09:17→22:01)
[2017-02-01 15:35] LABS: CLARITY URINE CLEAR (CLEAR); COLOR URINE YELLOW (YELLOW); GLUCOSE URINE NEGATIVE (NEGATIVE); KETONES URINE NEGATIVE (NEGATIVE); LEUKOCYTE ESTERASE URINE TRACE (NEGATIVE); NITRITE URINE NEGATIVE (NEGATIVE); OCCULT BLOOD URINE NEGATIVE (NEGATIVE); PROTEIN URINE TRACE (NEGATIVE); SPECIFIC GRAVITY URINE 1.015 (1.005-1.030); UROBILINOGEN URINE 0.2 E.U./dL (0.2-1.0)
[2017-02-01 21:01] VITALS: BP 124/56
[2017-02-01] MEDS: ATORVASTATIN CALCIUM 10MG TABLET PO SCH (21:59)
[2017-02-01] MEDS: INSULIN DETEMIR UD 100 UNITS/ML SYR SUBCUT SCH (22:15)
[2017-02-02] MEDS: HYDRALAZINE HCL 100MG TABLET PO SCH ×4 (00:06→22:00)
[2017-02-02] MEDS: IPRATROPIUM/ALBUTEROL 0.5-3(2.5)MG/3ML NEB HHN SCH ×4 (00:44→20:03)
[2017-02-02] MEDS: CLONIDINE 0.2MG TABLET PO SCH ×4 (01:42→22:00)
[2017-02-02] MEDS: DIPHENHYDRAMINE 50MG/ML VIAL IM PRN ×2 (01:42→14:08)
[2017-02-02] MEDS: SODIUM CHLORIDE 0.45% 1,000 ML IV SCH (04:56)
[2017-02-02] MEDS: BENAZEPRIL 20MG TABLET PO SCH ×2 (06:00→18:30)
[2017-02-02] MEDS: NITROGLYCERIN OINT 1GM/INCH UDPKT TD SCH ×3 (06:00→23:28)
[2017-02-02] MEDS: BLOOD SUGAR DIAGNOSTIC STRIP TEST SCH ×4 (06:38→21:00)
[2017-02-02 06:40] LABS: HEMATOCRIT. 37.3 % (42.0-52.0); HEMOGLOBIN. 12.8 g/dL (14.0-18.0); MEAN CORPUSCULAR HEMOGLOBIN 30.4 pg (28.0-32.0); MEAN CORPUSCULAR VOLUME 88.7 fL (80.0-94.0); MEAN PLATELET VOLUME 9.2 fl (7.4-10.4); PLATELET 140 x1000/uL (130-400); RED CELL DISTRIBUTION WIDTH 14.9 % (11.6-14.6)
[2017-02-02] MEDS: INSULIN LISPRO 100 UNITS/ML SUBCUT SCH ×4 (07:02→22:04)
[2017-02-02 07:04] LABS: CARBON DIOXIDE 28 mEq/L (21-32); CHLORIDE 98 mEq/L (98-107); HDL CHOLESTEROL 84 mg/dL (40-59); LDL CHOLESTEROL 76 mg/dL (5-100); PHOSPHORUS 2.5 mg/dL (2.5-4.9); TOTAL IRON BINDING CAPACITY 240 ug/dL (250-450)
[2017-02-02 07:56] LABS: PROSTRATE SPECIFIC AG TOTAL 4.46 ng/mL (0.0-4.0)
[2017-02-02 08:00] VITALS: BP 122/71
[2017-02-02] MEDS: CARVEDILOL 25MG TABLET PO SCH ×2 (08:51→22:03)
[2017-02-02] MEDS: ASPIRIN 81MG EC TABLET PO SCH (09:06)
[2017-02-02] MEDS: PREDNISONE 20MG TABLET PO SCH (09:06)
[2017-02-02] MEDS: CLOPIDOGREL 75MG TABLET PO SCH (09:07)
[2017-02-02] MEDS: SPIRONOLACTONE 25MG TABLET PO SCH (09:08)
[2017-02-02] MEDS: DOCUSATE SODIUM 100MG CAPSULE PO SCH (09:08)
[2017-02-02] MEDS: FINASTERIDE 5MG TABLET PO SCH (09:09)
[2017-02-02] MEDS: TAMSULOSIN HCL 0.4MG SR CAPSULE PO SCH (09:09)
[2017-02-02] MEDS: OMEPRAZOLE 20MG CAPSULE EXTENDED RELEASE PO SCH (09:09)
[2017-02-02] MEDS: FUROSEMIDE 40MG/4ML VIAL IVP SCH (09:10)
[2017-02-02] MEDS: BUDESONIDE 0.5MG/2ML NEB HHN SCH (09:29)
[2017-02-02 10:59] LABS: NUCLEATED RED BLOOD CELLS 2 /100 WBC; PLATELET ESTIMATE NORMAL
[2017-02-02] MEDS: FERROUS SULFATE 325MG TABLET PO SCH ×2 (12:38→16:31)
[2017-02-02] MEDS: ASCORBIC ACID 500 MG TABLET PO SCH (12:38)
[2017-02-02 20:00] VITALS: BP 141/71
[2017-02-02] MEDS: ATORVASTATIN CALCIUM 10MG TABLET PO SCH (22:02)
[2017-02-02] MEDS: INSULIN DETEMIR UD 100 UNITS/ML SYR SUBCUT SCH (22:04)
[2017-02-03] MEDS: IPRATROPIUM/ALBUTEROL 0.5-3(2.5)MG/3ML NEB HHN SCH ×4 (01:59→21:50)
[2017-02-03] MEDS: SODIUM CHLORIDE 0.45% 1,000 ML IV SCH (02:30)
[2017-02-03] MEDS: DIPHENHYDRAMINE 50MG/ML VIAL IM PRN ×2 (04:09→21:46)
[2017-02-03] MEDS: HYDRALAZINE HCL 100MG TABLET PO SCH ×3 (06:00→22:13)
[2017-02-03] MEDS: CLONIDINE 0.2MG TABLET PO SCH ×3 (06:00→22:00)
[2017-02-03] MEDS: BENAZEPRIL 20MG TABLET PO SCH ×2 (06:18→17:59)
[2017-02-03] MEDS: BLOOD SUGAR DIAGNOSTIC STRIP TEST SCH ×4 (06:18→21:00)
[2017-02-03] MEDS: INSULIN LISPRO 100 UNITS/ML SUBCUT SCH ×3 (06:19→18:00)
[2017-02-03] MEDS: NITROGLYCERIN OINT 1GM/INCH UDPKT TD SCH ×3 (06:20→22:12)
[2017-02-03 08:00] VITALS: BP 165/80
[2017-02-03] MEDS: FERROUS SULFATE 325MG TABLET PO SCH ×3 (09:20→17:58)
[2017-02-03] MEDS: PREDNISONE 20MG TABLET PO SCH (09:20)
[2017-02-03] MEDS: FINASTERIDE 5MG TABLET PO SCH (09:20)
[2017-02-03] MEDS: SPIRONOLACTONE 25MG TABLET PO SCH (09:21)
[2017-02-03] MEDS: CLOPIDOGREL 75MG TABLET PO SCH (09:21)
[2017-02-03] MEDS: ASCORBIC ACID 500 MG TABLET PO SCH (09:21)
[2017-02-03] MEDS: ASPIRIN 81MG EC TABLET PO SCH (09:21)
[2017-02-03] MEDS: FAMOTIDINE 20MG TABLET PO SCH (09:21)
[2017-02-03] MEDS: DOCUSATE SODIUM 100MG CAPSULE PO SCH (09:21)
[2017-02-03] MEDS: FUROSEMIDE 20MG TABLET PO SCH (09:21)
[2017-02-03] MEDS: TAMSULOSIN HCL 0.4MG SR CAPSULE PO SCH (09:22)
[2017-02-03] MEDS: CARVEDILOL 25MG TABLET PO SCH ×2 (09:22→21:00)
[2017-02-03] MEDS: BUDESONIDE 0.5MG/2ML NEB HHN SCH (10:03)
[2017-02-03] MEDS: LACTULOSE 20G/30ML UDC PO SCH ×2 (16:11→21:00)
[2017-02-03 20:00] VITALS: BP 137/72
[2017-02-03] MEDS ORDERED: INSULIN LISPRO 100 UNITS/ML SUBCUT SCH (20:00)
[2017-02-03 21:46] VITALS: BP 133/80
[2017-02-03] MEDS: ATORVASTATIN CALCIUM 10MG TABLET PO SCH (22:13)
[2017-02-03] MEDS: INSULIN DETEMIR UD 100 UNITS/ML SYR SUBCUT SCH (22:21)
[2017-02-03 22:46] VITALS: BP 128/64
[2017-02-04] MEDS: IPRATROPIUM/ALBUTEROL 0.5-3(2.5)MG/3ML NEB HHN SCH ×4 (00:30→19:54)
[2017-02-04] MEDS: CLONIDINE 0.2MG TABLET PO SCH ×3 (05:51→21:43)
[2017-02-04] MEDS: NITROGLYCERIN OINT 1GM/INCH UDPKT TD SCH ×3 (05:52→21:43)
[2017-02-04] MEDS: HYDRALAZINE HCL 100MG TABLET PO SCH ×3 (06:00→21:00)
[2017-02-04] MEDS: BENAZEPRIL 20MG TABLET PO SCH ×2 (06:00→17:32)
[2017-02-04] MEDS: BLOOD SUGAR DIAGNOSTIC STRIP TEST SCH ×4 (06:41→21:48)
[2017-02-04] MEDS: INSULIN LISPRO 100 UNITS/ML SUBCUT SCH ×3 (06:41→18:09)
[2017-02-04 08:33] VITALS: BP 157/79
[2017-02-04] MEDS: INSULIN LISPRO (LOW DOSE) 100 UNITS/ML SUBCUT SCH ×3 (09:00→17:00)
[2017-02-04] MEDS: LACTULOSE 20G/30ML UDC PO SCH ×4 (09:00→20:58)
[2017-02-04] MEDS: FINASTERIDE 5MG TABLET PO SCH (09:28)
[2017-02-04] MEDS: SPIRONOLACTONE 25MG TABLET PO SCH (09:29)
[2017-02-04] MEDS: ASCORBIC ACID 500 MG TABLET PO SCH (09:30)
[2017-02-04] MEDS: TAMSULOSIN HCL 0.4MG SR CAPSULE PO SCH (09:30)
[2017-02-04] MEDS: FERROUS SULFATE 325MG TABLET PO SCH ×3 (09:30→17:29)
[2017-02-04] MEDS: CARVEDILOL 25MG TABLET PO SCH ×2 (09:31→20:59)
[2017-02-04] MEDS: ASPIRIN 81MG EC TABLET PO SCH (09:31)
[2017-02-04] MEDS: CLOPIDOGREL 75MG TABLET PO SCH (09:31)
[2017-02-04] MEDS: FUROSEMIDE 20MG TABLET PO SCH (09:31)
[2017-02-04] MEDS: FAMOTIDINE 20MG TABLET PO SCH (09:31)
[2017-02-04] MEDS: DOCUSATE SODIUM 100MG CAPSULE PO SCH (09:31)
[2017-02-04 10:26] LABS: HEMATOCRIT. 45.1 % (42.0-52.0); HEMOGLOBIN. 14.9 g/dL (14.0-18.0); MEAN CORPUSCULAR HEMOGLOBIN 29.8 pg (28.0-32.0); MEAN CORPUSCULAR VOLUME 90.3 fL (80.0-94.0); MEAN PLATELET VOLUME 9.4 fl (7.4-10.4); PLATELET 157 x1000/uL (130-400); RED BLOOD CELL COUNT 4.99 mill/uL (4.7-6.1)
[2017-02-04 11:00] LABS: PLATELET ESTIMATE NORMAL
[2017-02-04 12:00] VITALS: BP 113/59
[2017-02-04] MEDS ORDERED: POTASSIUM CHLORIDE 20MEQ TABLET SR PO NR (16:15)
[2017-02-04 20:00] VITALS: BP 167/80
[2017-02-04] MEDS: ATORVASTATIN CALCIUM 10MG TABLET PO SCH (20:59)
[2017-02-04 21:44] VITALS: BP 157/77
[2017-02-04] MEDS: INSULIN DETEMIR UD 100 UNITS/ML SYR SUBCUT SCH (22:00)
[2017-02-05] MEDS: IPRATROPIUM/ALBUTEROL 0.5-3(2.5)MG/3ML NEB HHN SCH ×4 (02:07→21:13)
[2017-02-05] MEDS: BENAZEPRIL 20MG TABLET PO SCH ×2 (06:22→18:00)
[2017-02-05] MEDS: CLONIDINE 0.2MG TABLET PO SCH ×3 (06:22→22:04)
[2017-02-05] MEDS: HYDRALAZINE HCL 100MG TABLET PO SCH ×3 (06:22→22:04)
[2017-02-05] MEDS: NITROGLYCERIN OINT 1GM/INCH UDPKT TD SCH ×3 (06:23→22:05)
[2017-02-05] MEDS: BLOOD SUGAR DIAGNOSTIC STRIP TEST SCH ×4 (06:29→21:00)
[2017-02-05 08:00] VITALS: BP 88/46
[2017-02-05] MEDS: SPIRONOLACTONE 25MG TABLET PO SCH (08:22)
[2017-02-05] MEDS: FUROSEMIDE 20MG TABLET PO SCH (08:23)
[2017-02-05] MEDS: CARVEDILOL 25MG TABLET PO SCH ×2 (08:23→20:31)
[2017-02-05] MEDS: LACTULOSE 20G/30ML UDC PO SCH ×3 (08:24→16:01)
[2017-02-05] MEDS: FAMOTIDINE 20MG TABLET PO SCH (08:34)
[2017-02-05] MEDS: DOCUSATE SODIUM 100MG CAPSULE PO SCH (08:35)
[2017-02-05] MEDS: ASCORBIC ACID 500 MG TABLET PO SCH (08:36)
[2017-02-05] MEDS: CLOPIDOGREL 75MG TABLET PO SCH (08:36)
[2017-02-05] MEDS: FERROUS SULFATE 325MG TABLET PO SCH ×3 (08:36→17:25)
[2017-02-05] MEDS: ASPIRIN 81MG EC TABLET PO SCH (08:36)
[2017-02-05] MEDS: TAMSULOSIN HCL 0.4MG SR CAPSULE PO SCH (08:36)
[2017-02-05] MEDS: FINASTERIDE 5MG TABLET PO SCH (08:36)
[2017-02-05] MEDS: INSULIN LISPRO 100 UNITS/ML SUBCUT SCH ×3 (08:38→18:00)
[2017-02-05] MEDS: INSULIN LISPRO (LOW DOSE) 100 UNITS/ML SUBCUT SCH ×3 (08:39→18:01)
[2017-02-05] MEDS ORDERED: ERGOCALCIFEROL 50000UNITS CAPSULE PO SCH (16:30)
[2017-02-05] MEDS: ZINC SULFATE 220 MG ( 50 ) CAPSULE PO SCH (17:25)
[2017-02-05 20:00] VITALS: BP 165/77
[2017-02-05] MEDS: ATORVASTATIN CALCIUM 10MG TABLET PO SCH (20:31)
[2017-02-05 22:00] VITALS: BP 138/64
[2017-02-05] MEDS ORDERED: INSULIN DETEMIR UD 100 UNITS/ML SYR SUBCUT SCH (22:00)
[2017-02-05] MEDS: INSULIN DETEMIR UD 100 UNITS/ML SYR SUBCUT SCH (22:00)
[2017-02-05] MEDS: IPRATROPIUM/ALBUTEROL 0.5-3(2.5)MG/3ML NEB HHN PRN (23:37)
[2017-02-06] MEDS: IPRATROPIUM/ALBUTEROL 0.5-3(2.5)MG/3ML NEB HHN SCH (03:00)
[2017-02-06] MEDS: HYDRALAZINE HCL 100MG TABLET PO SCH (06:00)
[2017-02-06] MEDS: CLONIDINE 0.2MG TABLET PO SCH (06:00)
[2017-02-06] MEDS: NITROGLYCERIN OINT 1GM/INCH UDPKT TD SCH (06:00)
[2017-02-06] MEDS: BENAZEPRIL 20MG TABLET PO SCH (06:00)
[2017-02-06] MEDS: BLOOD SUGAR DIAGNOSTIC STRIP TEST SCH ×2 (06:12→11:11)
[2017-02-06 06:54] LABS: HEMATOCRIT. 38.8 % (42.0-52.0); MEAN CORPUSCULAR VOLUME 89.2 fL (80.0-94.0); MEAN PLATELET VOLUME 9.3 fl (7.4-10.4); PLATELET 66 x1000/uL (130-400); RED BLOOD CELL COUNT 4.34 mill/uL (4.7-6.1); RED CELL DISTRIBUTION WIDTH 14.1 % (11.6-14.6)
[2017-02-06] MEDS: CARVEDILOL 25MG TABLET PO SCH (07:54)
[2017-02-06] MEDS: SPIRONOLACTONE 25MG TABLET PO SCH (07:56)
[2017-02-06 08:31] VITALS: BP 109/59
[2017-02-06] MEDS: INSULIN LISPRO 100 UNITS/ML SUBCUT SCH (08:44)
[2017-02-06] MEDS: DOCUSATE SODIUM 100MG CAPSULE PO SCH (08:45)
[2017-02-06] MEDS: FERROUS SULFATE 325MG TABLET PO SCH (08:45)
[2017-02-06] MEDS: FAMOTIDINE 20MG TABLET PO SCH (08:46)
[2017-02-06] MEDS: FUROSEMIDE 20MG TABLET PO SCH (08:47)
[2017-02-06] MEDS: ASPIRIN 81MG EC TABLET PO SCH (08:47)
[2017-02-06] MEDS: ASCORBIC ACID 500 MG TABLET PO SCH (08:48)
[2017-02-06] MEDS: FINASTERIDE 5MG TABLET PO SCH (08:48)
[2017-02-06] MEDS: TAMSULOSIN HCL 0.4MG SR CAPSULE PO SCH (08:48)
[2017-02-06] MEDS: CLOPIDOGREL 75MG TABLET PO SCH (08:48)
[2017-02-06] MEDS: ZINC SULFATE 220 MG ( 50 ) CAPSULE PO SCH (08:50)
[2017-02-06 11:59] VITALS: BP 109/59
[2017-02-06 17:26] LABS: PLATELET ESTIMATE DECREASED
== END 2017-02-06 13:17 | DRG 70 ==
PROVIDERS: ADMIT Physical Medicine & Rehabilitation Spinal Cord Injury Medicine; ATTEND Internal Medicine
DX: G93.40 Encephalopathy, unspecified (principal); I21.4 Non-ST elevation (NSTEMI) myocardial infarction; I50.33 Acute on chronic diastolic (congestive) heart failure; N17.9 Acute kidney failure, unspecified; J96.10 Chronic respiratory failure, unspecified whether with hypoxia or hypercapnia; R13.10 Dysphagia, unspecified; J44.1 Chronic obstructive pulmonary disease with (acute) exacerbation; I13.0 Hypertensive heart and chronic kidney disease with heart failure and stage 1 through stage 4 chronic kidney disease, or unspecified chronic kidney disease; K70.30 Alcoholic cirrhosis of liver without ascites; R33.8 Other retention of urine; N18.9 Chronic kidney disease, unspecified; M47.812 Spondylosis without myelopathy or radiculopathy, cervical region; I25.10 Atherosclerotic heart disease of native coronary artery without angina pectoris; F41.9 Anxiety disorder, unspecified; F03.90 Unspecified dementia, unspecified severity, without behavioral disturbance, psychotic disturbance, mood disturbance, and anxiety; E61.1 Iron deficiency; E11.649 Type 2 diabetes mellitus with hypoglycemia without coma; E11.22 Type 2 diabetes mellitus with diabetic chronic kidney disease; D64.9 Anemia, unspecified; R26.9 Unspecified abnormalities of gait and mobility; T38.3X5A Adverse effect of insulin and oral hypoglycemic [antidiabetic] drugs, initial encounter; R29.6 Repeated falls; B35.1 Tinea unguium; E78.00 Pure hypercholesterolemia, unspecified; N40.1 Benign prostatic hyperplasia with lower urinary tract symptoms; Z95.0 Presence of cardiac pacemaker; Z86.73 Personal history of transient ischemic attack (TIA), and cerebral infarction without residual deficits; Z87.891 Personal history of nicotine dependence; I25.2 Old myocardial infarction; Z79.899 Other long term (current) drug therapy
CPT/HCPCS: 36415; 71010; 73521; 80048; 80053; 80061; 81001; 82270; 82306; 82607; 82728; 82962; 83036; 83540; 83550; 83735; 84100; 84134; 84153; 84443; 84630; 85025; 87086; 92523; 92610; 93970; 94640; 94664; 97110; 97112; 97116; 97162; 97167; 97530; 97532; 97535; J1200; J1815; J1940; J2920; J7512; J7620; J7626; A4315; A5200